=== PATIENT | male | born 2000 | race Caucasian/White ===

== ENCOUNTER 2022-03-08 00:19 | Emergency (ER) | payer OTHER ==
[~2022-03-08] VITALS: Ht 185.4 cm; Wt 98.8 kg
[2022-03-08] MEDS ORDERED: MUCI1TAB18 PO (00:28)
[2022-03-08] MEDS ORDERED: ACET25TA12 PO (00:28)
[2022-03-08 08:25] VITALS: BP 128/63
[2022-03-08] MEDS ORDERED: PENICILLIN V POTASSIUM 500 MG TAB PO ONE (08:45)
[2022-03-08] MEDS ORDERED: predniSONE 20 MG TAB PO ONE (08:45)
[2022-03-08] MEDS ORDERED: IBUPROFEN 800 MG TAB PO ONE (08:45)
[2022-03-08] MEDS ORDERED: MEDR4PAK PO (08:47)
[2022-03-08] MEDS ORDERED: PENI500T PO (08:47)
[2022-03-08] MEDS ORDERED: IBUP80TA PO (08:47)
[2022-03-08] MEDS ORDERED: BENZ1LOZ9 PO (08:50)
== END 2022-03-08 09:24 | disposition home or self-care (01) ==
LOC: M ED 00:19
DX: J02.0 Streptococcal pharyngitis (principal); J03.00 Acute streptococcal tonsillitis, unspecified
CPT/HCPCS: 87880; 99283; J7512